=== PATIENT | female | born 1950 | race Caucasian/White ===

== ENCOUNTER → 2018-12-04 | Outpatient (CLI) | payer MEDICARE | END | disposition home or self-care (01) | LOC: PCVCCLINIC 15:00 | PROVIDERS: ATTEND Internal Medicine | DX: I25.10 Atherosclerotic heart disease of native coronary artery without angina pectoris (principal); I10 Essential (primary) hypertension; E78.5 Hyperlipidemia, unspecified; R19.8 Other specified symptoms and signs involving the digestive system and abdomen; R09.89 Other specified symptoms and signs involving the circulatory and respiratory systems; E03.9 Hypothyroidism, unspecified; Z79.82 Long term (current) use of aspirin; Z95.1 Presence of aortocoronary bypass graft | CPT/HCPCS: 93005; G0463 ==

== ENCOUNTER → 2019-01-09 | Outpatient (CLI) | payer MEDICARE ==
--- NOTE | 2019-01-09 14:17 | PCVCIMAG ---
APPROVED REPORT Laterality: Bilateral Patient Location: Out-Patient Indications Bruit Risk Factors Hypertension: Doppler Spectral Velocity Analysis PSV / EDVPSV / EDV ECA (R) 103 / 14 cm/sECA (L) 71 / 11 cm/s dICA (R) 58 / 18 cm/sdICA (L) 70 / 20 cm/s Mamta (R) 77 / 21 cm/smICA (L) 78 / 21 cm/s pICA (R) 83 / 18 cm/spICA (L) 60 / 16 cm/s Bulb (R) 91 / 21 cm/sBulb (L) 58 / 14 cm/s dCCA (R) 76 / 22 cm/sdCCA (L) 56 / 12 cm/s mCCA (R) 89 / 21 cm/smCCA (L) 60 / 14 cm/s Vert (R) 29 / 7 cm/sVert (L) 32 / 13 cm/s ICA/CCA 1.09ICA/CCA 1.39 Basic Measurements Blood Pressure: Pulses: Right Left RightLeft Brachial(Sitting) 130/34woUr146/72mmHgTemporal Findings The right carotid bulb has moderate plaque. The right proximal internal carotid artery shows <40% stenosis. The right common carotid artery shows no significant stenosis. The right external carotid artery shows no significant stenosis. The left carotid bulb has moderate plaque. The left proximal internal carotid artery shows <40% stenosis. The left common carotid artery shows no significant stenosis. The left external carotid artery shows no significant stenosis. Conclusion 1. Right internal carotid artery stenosis (<40%) 2. Left internal carotid artery stenosis (<40%) 3. Antegrade vertebral flow
--- NOTE | 2019-01-09 15:27 | PCVCIMAG ---
EXAM: AORTOILIAC DUPLEX INDICATION: Palpable abdominal fullness. FINDINGS: AORTA: Suprarenal aorta measures maximum diameter of 1.9 cm. There is not a fusiform infrarenal aortic aneurysm. The infrarenal aorta measures maximum diameter of 1.7 cm. No aortic stenosis. RIGHT COMMON ILIAC ARTERY: Maximum diameter is 0.9 cm. No significant stenosis. RIGHT EXTERNAL ILIAC ARTERY: No significant stenosis. LEFT COMMON ILIAC ARTERY: Maximum diameter is 0.9 cm. No significant stenosis. LEFT EXTERNAL ILIAC ARTERY: No significant stenosis. IMPRESSION: No abdominal aortic aneurysm. No aortoiliac stenosis seen. LOC:[id number]
== END | disposition home or self-care (01) ==
LOC: PCVCIMAG 12:43
PROVIDERS: ATTEND Internal Medicine
DX: I65.23 Occlusion and stenosis of bilateral carotid arteries (principal); E78.5 Hyperlipidemia, unspecified; Z95.1 Presence of aortocoronary bypass graft; Z88.2 Allergy status to sulfonamides; Z91.048 Other nonmedicinal substance allergy status
CPT/HCPCS: 93880; 93978